=== PATIENT | male | born 1980 | race Caucasian/White ===

== ENCOUNTER → 2016-09-03 | Outpatient (CLI) | payer OTHER ==
[~2016-09-03] MED LIST: ATOR-22 PO; CLX/20 PO; CLX40 PO; CYCL10TA6 PO; GADAVIST IV PRN; HYDR25TA5 PO; LISI-461 PO; LORA-741 PO; LPT/40 PO; METO25TA3 PO; METO50TA7 PO; OMEP40CA PO; OXYC-57 PO; RANI300T2 PO
[2016-09-03 14:58] LABS: BASO % 0.8 %; BASO ABS # 0.06 K/uL (0-0.2); COMPLETE YES; EOS % 4.1 %; HEMATOCRIT 43.4 % (42-52); IG% 0.4 %; LYMPH % 24.7 %; LYMPH ABS # 1.88 K/uL (1.2-3.4); MEAN CELL VOLUME 97.1 fL (80-100); MEAN CORPUSCULAR HEMOGLOBIN 33.1 pg (25-34); MEAN CORPUSCULAR HGB CONC 34.1 g/dl (32-36); MEAN PLATELET VOLUME 10.5 fL (7.4-10.4); MONO % 10.5 %; NEUT % 59.5 %; PLATELET COUNT 281 K/uL (130-400); RED BLOOD COUNT 4.47 M/uL (4.7-6.1); WHITE BLOOD COUNT 7.62 K/uL (4.8-10.8)
[2016-09-03 15:31] LABS: ALT/SGPT 47 U/L (12-78); AST/SGOT 18 U/L (15-37); BLOOD UREA NITROGEN 7 mg/dl (7-18); BUN/CREATININE RATIO 6.1 (10-20); CALCIUM 9.3 mg/dl (8.5-10.1); CARBON DIOXIDE 30 mmol/L (21-32); CHLORIDE 102 mmol/L (98-107); GLUCOSE 95 mg/dl (70-99); POTASSIUM 3.4 mmol/L (3.5-5.1); SODIUM 140 mmol/L (136-145)
[2016-09-03 15:34] LABS: ALB/GLOB RATIO 0.8 (0.9-2); ALKALINE PHOSPHATASE 163 U/L (45-117); C-REACTIVE PROTEIN 1.66 mg/dl (0-0.29)
--- NOTE | 2016-09-03 15:45 | DIAGNOSTIC IMAGING REPORT ---
LUMBAR SPINE MRI HISTORY: Pain. Neuropathy. M62.449 Contracture of muscle of [id number] TECHNIQUE: Multiplanar multisequence MRI of the lumbar spine was performed without the use of contrast. COMPARISON: None. FINDINGS: For the purpose of the report the L5-S1 disc space will be located on axial image 27 of 30. Unremarkable signal characteristics of the vertebral bodies. Mild disc desiccation of the discs. L1-L2: No significant central canal or neural foraminal narrowing. L2-L3: No significant central canal or neural foraminal narrowing. L3-L4: No significant central canal or neural foraminal narrowing. L4-L5: Left lateral bulging disc. Moderate narrowing left neural foramina. L5-S1: Left posterior disc herniation creating focal deformity left anterior aspect thecal sac as well as moderate compromise of left neural foramina. IMPRESSION: 1. Left posterior disc herniation L5-S1 deforming the thecal sac and moderately narrowing left neural foramina. 2. Left lateral bulging disc L4-L5 with moderate narrowing left neural foramina. 3. Otherwise negative study Electronically signed by: Kel Davis M.D. 09/03/2016 3:43 PM Dictated Date/Time: 09/03/2016 3:41 PM
--- NOTE | 2016-09-03 16:46 | DIAGNOSTIC IMAGING REPORT ---
MRI OF THE BRAIN WITHOUT AND WITH IV CONTRAST CLINICAL HISTORY: Bilateral contractures. Rule out central etiology. COMPARISON STUDY: No previous studies for comparison. TECHNIQUE: MRI of the brain was performed from the vertex to the skull base utilizing various T1 and T2 weighted sequences. Following the IV administration of 10.7 mL of Gadavist contrast, additional enhanced images were obtained. FINDINGS: Sagittal T1, axial diffusion, proton density and T2 weighted axial, coronal FLAIR, and pre and post axial T1-weighted images were acquired. These were supplemented with post gadolinium coronal T1 weighted images. No intra or extra-axial mass lesions are visualized. Axial diffusion-weighted images reveal no evidence of acute or subacute infarction. There is no evidence of ventricular dilatation. There are nodular foci at the level the ependymal surfaces of the ventricle, most suggestive heterotopic jimenez matter. Proton density T2-weighted and FLAIR images reveal mild foci of increased FLAIR signal within the left frontal white matter. There are no abnormal flow voids. There is no evidence of pathologic enhancement. IMPRESSION: 1. 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 Mild foci of increased FLAIR signal within the left frontal white matter 3. No evidence of acute or subacute infarction Electronically signed by: Ori Mathur M.D. 09/03/2016 4:44 PM Dictated Date/Time: 09/03/2016 4:37 PM
[2016-09-05 17:30] LABS: IGA SERUM 367 mg/dL (81-463); TIS TRANS IGA 1 U/mL (<4)
== END | disposition home or self-care (01) ==
LOC: C.MRI 14:09
PROVIDERS: ATTEND Psychiatry & Neurology Neurology
DX: M62.449 Contracture of muscle, unspecified hand (principal); R19.4 Change in bowel habit

== ENCOUNTER → 2016-09-24 | Outpatient (CLI) | payer OTHER ==
[~2016-09-24] MED LIST changes: -GADAVIST IV PRN
[2016-09-24 15:02] LABS: ALT/SGPT 37 U/L (12-78); BLOOD UREA NITROGEN 10 mg/dl (7-18); CALCIUM 9.2 mg/dl (8.5-10.1); CARBON DIOXIDE 31 mmol/L (21-32); CHLORIDE 107 mmol/L (98-107); CREATININE 0.94 mg/dl (0.60-1.40); GLUCOSE 98 mg/dl (70-99); POTASSIUM 3.3 mmol/L (3.5-5.1); SODIUM 143 mmol/L (136-145)
[2016-09-24 15:05] LABS: ALB/GLOB RATIO 0.9 (0.9-2); ALKALINE PHOSPHATASE 155 U/L (45-117); AST/SGOT 15 U/L (15-37)
== END | disposition home or self-care (01) ==
LOC: C.LAB 12:42
PROVIDERS: ATTEND Physician Assistant
DX: R74.8 Abnormal levels of other serum enzymes (principal)

== ENCOUNTER → 2016-09-24 | Outpatient (CLI) | payer OTHER ==
--- NOTE | 2016-09-24 13:30 | DIAGNOSTIC IMAGING REPORT ---
THORACIC SPINE 3 VIEWS ROUTINE CLINICAL HISTORY: BACK PAIN COMPARISON STUDY: No previous studies for comparison. FINDINGS: The paraspinal line is not displaced. Minimal irregularity of the T11 and T12 vertebral bodies are likely degenerative. If the patient has persistent pain, additional imaging could be obtained in follow-up. IMPRESSION: No fractures or destructive lesions are visualized on conventional radiographic imaging Electronically signed by: Ori Mathur M.D. 09/24/2016 1:28 PM Dictated Date/Time: 09/24/2016 1:25 PM
[2016-09-24 14:39] LABS: HEMATOCRIT 44.2 % (42-52); MEAN CELL VOLUME 98.4 fL (80-100); MEAN CORPUSCULAR HEMOGLOBIN 33.2 pg (25-34); MEAN CORPUSCULAR HGB CONC 33.7 g/dl (32-36); MEAN PLATELET VOLUME 11.2 fL (7.4-10.4); PLATELET COUNT 367 K/uL (130-400); RED BLOOD COUNT 4.49 M/uL (4.7-6.1); WHITE BLOOD COUNT 8.88 K/uL (4.8-10.8)
[2016-09-24 15:06] LABS: ALT/SGPT 36 U/L (12-78); AST/SGOT 16 U/L (15-37); BLOOD UREA NITROGEN 10 mg/dl (7-18); BUN/CREATININE RATIO 11.4 (10-20); CALCIUM 8.9 mg/dl (8.5-10.1); CARBON DIOXIDE 30 mmol/L (21-32); CHLORIDE 107 mmol/L (98-107); GLUCOSE 97 mg/dl (70-99); POTASSIUM 3.4 mmol/L (3.5-5.1); SODIUM 143 mmol/L (136-145)
[2016-09-24 15:17] LABS: ALB/GLOB RATIO 0.8 (0.9-2); ALKALINE PHOSPHATASE 142 U/L (45-117); CHOLESTEROL 130 mg/dl (0-200); CHOLESTEROL/HDL RATIO 3.5; CKMB/CK RATIO 0.6 (0-3.0); HDL CHOLESTEROL 37 mg/dl; LDL CHOLESTEROL CALCULATED 56 mg/dl; TRIGLYCERIDES 184 mg/dl (0-150); VERY LOW DENSITY LIPOPROT CALC 37 mg/dl
== END | disposition home or self-care (01) ==
LOC: C.RAD 12:38
PROVIDERS: ATTEND Dermatology
DX: E78.5 Hyperlipidemia, unspecified (principal); M25.579 Pain in unspecified ankle and joints of unspecified foot; E66.9 Obesity, unspecified; I10 Essential (primary) hypertension; M54.5 Low back pain; R53.81 Other malaise; R74.8 Abnormal levels of other serum enzymes

== ENCOUNTER → 2016-10-02 | Day surgery (SDC) | payer OTHER ==
[2016-09-25 07:50] VITALS: BMI 32.0
[~2016-10-02] VITALS: Ht 182.9 cm; Wt 106.8 kg
[~2016-10-02] MED LIST changes: -ATOR-22 PO; -CLX/20 PO; -HYDR25TA5 PO; +LIDOCAINE HCL 2% 2 ML VIAL (20MG/ML) ONE; -METO25TA3 PO; +MIDAZOLAM HCL 1 MG/ML 2ML VIAL ONE; +PROPOFOL IV EMULSION 10 MG/ML 20 ML VIAL IV ONE; +SODIUM CHLORIDE 0.9% 500ML 500 ML IV ONE
[2016-10-02 08:31] VITALS: Ht 182.9 cm; Wt 106.8 kg
--- NOTE | 2016-10-02 08:46 | Endo History and Physical ---
History & Physical Date of Service: October 02, 2016. Chief Complaint: change in bowel habits, loose stools Referring Physician: Billie Johnson PA-C History of Present Illness 36 yo CM who presents for colonoscopy secondary to change in bowel habits. Past Medical History Gastrointestinal Disorder, High Cholesterol, Hypertension Past Surgical History Hx Cardiac Surgery: No Hx Internal Defibrillator: No Hx Pacemaker: No Hx Abdominal Surgery: No Hx of Implantable Prosthesis: No Hx Post-Op Nausea and Vomiting: No Hx Cancer Surgery: No Hx Thoracic Surgery: No Hx Orthopedic: Yes (LT ANKLE REPLACEMENT, LT SHOULDER SURGERY, LT KNEE RECON) Hx Urinary Tract Surgery: No Family History None Social History Smoking Status: Never Smoker Hx Substance Use: No Hx Alcohol Use: No Allergies Coded Allergies: No Known Allergies (Unverified , 09/25/16) Current Medications Reported Home Medications Medications Dose Route/Sig Max Daily Dose Days Date Category Ativan (Lorazepam) 0.5 Mg Tab 0.5 Mg PO TID PRN 09/25/16 Reported Zestril (Lisinopril) 10 Mg Tab 10 Mg PO QAM 09/25/16 Reported Citalopram Hydrobromide (Citalopram) 40 Mg Tab 1 Tab PO QAM 09/25/16 Reported Toprol-Xl (Metoprolol Succinate) 50 Mg Tabcr 50 Mg PO QAM 09/25/16 Reported Lipitor (Atorvastatin) 40 Mg Tab 40 Mg PO HS 09/25/16 Reported Zantac (Ranitidine HCl) 300 Mg Tab 300 Mg PO HS 07/26/14 Reported Prilosec (Omeprazole) 40 Mg Capcr 40 Mg PO QAM 04/30/14 Reported Vital Signs Weight (Kilograms): 106.82 Height (Feet): 6 Height (Inches): 0 Date Time Temp Pulse Resp B/P Pulse Ox O2 Delivery O2 Flow Rate FiO2 10/02/16 08:37 36.6 64 24 142/92 94 Room Air Physical Exam General Appearance: WD/WN, no apparent distress Respiratory/Chest: Auscultation: breath sounds normal Cardiovascular: Heart Auscultation: RRR Abdomen: Bowel Sounds: normal Inspection & Palpation: soft, non-distended, no tenderness, guarding & rebound Assessment and Plan Assessment: 36 yo CM who presents for colonoscopy secondary to change in bowel habits. Plan: Proceed with colonoscopy.
--- NOTE | 2016-10-02 09:33 | Discharge Instructions ---
Endoscopy Patient Instructions Date / Procedure(s) Performed October 02, 2016. Colonoscopy Allergy Information Coded Allergies: No Known Allergies (Unverified , 09/25/16) Discharge Date / Findings October 02, 2016. Diverticulosis Internal hemorrhoids Random colon biopsies Medication Instructions OK to resume all medications today as prescribed Reported Home Medications Medications Dose Route/Sig Max Daily Dose Days Date Category Ativan (Lorazepam) 0.5 Mg Tab 0.5 Mg PO TID PRN 09/25/16 Reported Zestril (Lisinopril) 10 Mg Tab 10 Mg PO QAM 09/25/16 Reported Citalopram Hydrobromide (Citalopram) 40 Mg Tab 1 Tab PO QAM 09/25/16 Reported Toprol-Xl (Metoprolol Succinate) 50 Mg Tabcr 50 Mg PO QAM 09/25/16 Reported Lipitor (Atorvastatin) 40 Mg Tab 40 Mg PO HS 09/25/16 Reported Zantac (Ranitidine HCl) 300 Mg Tab 300 Mg PO HS 07/26/14 Reported Prilosec (Omeprazole) 40 Mg Capcr 40 Mg PO QAM 04/30/14 Reported Provider Instructions Activity Restrictions - No exercising or heavy lifting for 24 hours. - Do not drink alcohol the day of the procedure. - Do not drive a car or operate machinery until the day after the procedure. - Do not make any important decisions or sign important papers in 24 hours after the procedure. Following Day: - Return to full activity which may include returning to work/school. Diet Start your diet with liquids and light foods (jello, soup, juice, toast). Then eat your usual diet if not nauseated. Treatment For Common After Affects For mild abdominal pain, bloating, or excessive gas: - Rest - Eat lightly - Lie on right side Follow-Up Information Follow-up with Billie Johnson PA-C as scheduled Anesthesia Information What You Should Know You have had a procedure that required some medicine to reduce anxiety and discomfort. This treatment is called moderate sedation. After receiving the treatment, you may be sleepy, but you will be able to breathe on your own. The effects of the treatment may last for several hours. Follow these instructions along with Activity/Diet recommendations noted above: * Do NOT do anything where dizziness or clumsiness would be dangerous. * Rest quietly at home today, then you can be up and about tomorrow. * Have a responsible person stay with you the rest of today. * You may have had an I.V. today. If so, you may take the dressing off later today. Recommendations Call your doctor if: * Trouble breathing * Continuous vomiting for more than 24 hours * Temperature above 101 degrees * Severe abdominal pain or bloating * Pain not relieved by pain medicine ordered * There is increased drainage or redness from any incision * A large amount of rectal bleeding greater than 2-3 tablespoons. (If you had a polyp/s removed or have hemorrhoids, a small amount of blood - from the rectum is to be expected.) * You have any unanswered questions or concerns. IN THE EVENT OF A SERIOUS EMERGENCY, GO TO THE NEAREST EMERGENCY ROOM Your discharge instructions were prepared by provider Howard Ohara. Patient Instructions Signature Page Leonel Layne Patient (or Guardian) Signature/Date: I have read and understand the instructions given to me by my caregivers. Caregiver/RN/Doctor Signature/Date: The above-named patient and/or guardian has received patient instructions on this date. + Original Patient Signature Page (only) stays with chart. Please make copy for patient.
--- NOTE | 2016-10-02 09:43 | Anesthesiology Progress Note ---
Anesthesia Post Op Note Date & Time October 02, 2016 at 09:43 Vital Signs Pain Intensity: 0 Vital Signs Past 12 Hours Date Time Temp Pulse Resp B/P Pulse Ox O2 Delivery O2 Flow Rate FiO2 10/02/16 09:35 75 16 113/58 94 Room Air 10/02/16 08:37 36.6 64 24 142/92 94 Room Air Notes Mental Status: alert / awake / arousable, participated in evaluation Pt Amnestic to Procedure: Yes Nausea / Vomiting: adequately controlled Pain: adequately controlled Airway Patency, RR, SpO2: stable & adequate BP & HR: stable & adequate Hydration State: stable & adequate Anesthetic Complications: no major complications apparent
--- NOTE | 2016-10-02 09:51 | GI REPORT ---
Procedure Date: 10/02/2016 8:49 AM Procedure: Colonoscopy Indications: Change in bowel habits Medicines: Monitored Anesthesia Care Complications: No immediate complications. Estimated Blood Loss: Estimated blood loss: none. Procedure: Pre-Anesthesia Assessment: - Prior to the procedure, a History and Physical was performed, and patient medications and allergies were reviewed. The patient's tolerance of previous anesthesia was also reviewed. The risks and benefits of the procedure and the sedation options and risks were discussed with the patient. All questions were answered, and informed consent was obtained. Prior Anticoagulants: The patient has taken no previous anticoagulant or antiplatelet agents. ASA Grade Assessment: II - A patient with mild systemic disease. After reviewing the risks and benefits, the patient was deemed in satisfactory condition to undergo the procedure. After I obtained informed consent, the scope was passed under direct vision. Throughout the procedure, the patient's blood pressure, pulse, and oxygen saturations were monitored continuously. The scope was introduced through the anus and advanced to the terminal ileum. The colonoscopy was performed without difficulty. The patient tolerated the procedure well. The quality of the bowel preparation was good. The terminal ileum, ileocecal valve, appendiceal orifice, and rectum were photographed. Findings: Multiple small-mouthed diverticula were found in the sigmoid colon. Non-bleeding internal hemorrhoids were found during retroflexion. The hemorrhoids were small. Several random biopsies were obtained with cold forceps for histology in the entire colon. Impression: - Diverticulosis in the sigmoid colon. - Non-bleeding internal hemorrhoids. - Several random biopsies were obtained in the entire colon. Recommendation: - Resume previous diet. - Continue present medications. - Repeat colonoscopy for surveillance based on pathology results. - Return to primary care physician as previously scheduled. Howard Ohara DO 10/02/2016 9:50:47 AM This report has been signed electronically. Note Initiated On: 10/02/2016 8:49 AM I attest to the content of the Intraoperative Record and orders documented therein, exceptions below
[2016-10-02 09:56] VITALS: BP 115/90; PULSE 64; O2SAT 100
== END | disposition home or self-care (01) ==
LOC: C.GI 08:17
PROVIDERS: ATTEND Internal Medicine
DX: R19.4 Change in bowel habit (principal); K64.8 Other hemorrhoids; K57.30 Diverticulosis of large intestine without perforation or abscess without bleeding; E78.00 Pure hypercholesterolemia, unspecified; I10 Essential (primary) hypertension

== ENCOUNTER → 2016-10-22 | Outpatient (CLI) | payer OTHER ==
[~2016-10-22] MED LIST changes: -LIDOCAINE HCL 2% 2 ML VIAL (20MG/ML) ONE; -MIDAZOLAM HCL 1 MG/ML 2ML VIAL ONE; -PROPOFOL IV EMULSION 10 MG/ML 20 ML VIAL IV ONE; -SODIUM CHLORIDE 0.9% 500ML 500 ML IV ONE
[2016-10-22 13:21] LABS: LYME DISEASE AB IGG NEG (NEG)
[2016-10-22 13:23] LABS: LYME DISEASE AB IGM NEG (NEG)
[2016-10-22 20:46] LABS: RAPID PLASMA REAGIN NONREACTIVE (NONREACT)
== END | disposition home or self-care (01) ==
LOC: C.LAB 11:21
PROVIDERS: ATTEND Psychiatry & Neurology Neurology
DX: G44.009 Cluster headache syndrome, unspecified, not intractable (principal)

== ENCOUNTER → 2016-10-22 | Outpatient (CLI) | payer OTHER ==
[2016-10-22 12:29] LABS: HEMATOCRIT 43.4 % (42-52); MEAN CELL VOLUME 97.7 fL (80-100); MEAN CORPUSCULAR HEMOGLOBIN 33.6 pg (25-34); MEAN CORPUSCULAR HGB CONC 34.3 g/dl (32-36); MEAN PLATELET VOLUME 11.2 fL (7.4-10.4); PLATELET COUNT 394 K/uL (130-400); RED BLOOD COUNT 4.44 M/uL (4.7-6.1); WHITE BLOOD COUNT 17.24 K/uL (4.8-10.8)
[2016-10-22 13:23] LABS: BLOOD UREA NITROGEN 15 mg/dl (7-18); CREATININE 0.95 mg/dl (0.60-1.40); GLUCOSE 90 mg/dl (70-99)
[2016-10-22 13:24] LABS: ALB/GLOB RATIO 0.9 (0.9-2); ALKALINE PHOSPHATASE 142 U/L (45-117); ALT/SGPT 56 U/L (12-78); AST/SGOT 15 U/L (15-37); BUN/CREATININE RATIO 15.8 (10-20); C-REACTIVE PROTEIN < 0.29 mg/dl (0-0.29); CALCIUM 9.5 mg/dl (8.5-10.1); CARBON DIOXIDE 29 mmol/L (21-32); CHLORIDE 109 mmol/L (98-107); SODIUM 145 mmol/L (136-145)
--- NOTE | 2016-10-31 12:04 | CODING QUERY MEDICAL NECESSITY ---
CQSUPPORTING DIAGNOSIS NEEDED A supporting diagnosis is required for the test/procedure performed on this patient in order for us to be reimbursed by the patient's insurance. Please provide a supporting diagnosis for the following test/procedure listed below next to the test name along with your signature. *If there is no additional diagnosis for this patient that would support the following test/procedure please document that below next to the test/procedure. Test(s)/Procedure(s) that require a supporting diagnosis: DOS 10/22/16 VITAMIN B12 SCREENING SEXUALLY TRANSMITTED DISEASE Provider Signature: Date: Thank you Arleth Walker Health Information Management Once completed, please kindly fax back to [phone] For questions please call [phone]
== END | disposition home or self-care (01) ==
LOC: C.LAB 11:17
PROVIDERS: ATTEND Physician Assistant
DX: M25.579 Pain in unspecified ankle and joints of unspecified foot (principal); R19.7 Diarrhea, unspecified; I10 Essential (primary) hypertension; G43.009 Migraine without aura, not intractable, without status migrainosus; R26.9 Unspecified abnormalities of gait and mobility

== ENCOUNTER → 2017-02-14 | Outpatient (CLI) | payer OTHER ==
[~2017-02-14] MED LIST changes: +SINCALIDE INJ 2.1 MCG in SODIUM CHLORIDE 0.9% 100ML 100 ML IV ONE
--- NOTE | 2017-02-14 13:53 | DIAGNOSTIC IMAGING REPORT ---
HEPATOBILIARY EF IMAGING HISTORY: Nausea. Vomiting. R19.7 [id number] COMPARISON: None. TECHNIQUE: Immediately following the intravenous administration of 5.2 mCi Tc-99m Choletec, dynamic anterior abdominal imaging pre/post 2.1 mcg of Kinevac was performed. FINDINGS: Uniform hepatic tracer accumulation is shown. Prompt intrahepatic biliary excretion is seen. The gallbladder, common bile duct, and small bowel are all visualized by 25 minutes. This appearance represents the normal sequence of biliary excretion. The gallbladder ejection fraction following administration of Kinevac was 26 % (normal >35%). IMPRESSION: 1. No evidence for cystic duct obstruction. 2. Gallbladder ejection fraction calculated to be 26 %. This is considered abnormally low The above report was generated using voice recognition software. It may contain grammatical, syntax or spelling errors. Electronically signed by: Kel Davis M.D. 02/14/2017 1:52 PM Dictated Date/Time: 02/14/2017 1:48 PM
[2017-02-14 14:52] LABS: HEMATOCRIT 43.5 % (42-52); MEAN CELL VOLUME 97.3 fL (80-100); MEAN CORPUSCULAR HEMOGLOBIN 33.3 pg (25-34); MEAN CORPUSCULAR HGB CONC 34.3 g/dl (32-36); MEAN PLATELET VOLUME 11.6 fL (7.4-10.4); PLATELET COUNT 256 K/uL (130-400); RED BLOOD COUNT 4.47 M/uL (4.7-6.1); WHITE BLOOD COUNT 9.48 K/uL (4.8-10.8)
[2017-02-14 15:17] LABS: ALT/SGPT 30 U/L (12-78); AST/SGOT 16 U/L (15-37); BLOOD UREA NITROGEN 7 mg/dl (7-18); BUN/CREATININE RATIO 7.3 (10-20); CALCIUM 9.3 mg/dl (8.5-10.1); CARBON DIOXIDE 30 mmol/L (21-32); CHLORIDE 108 mmol/L (98-107); CHOLESTEROL 129 mg/dl (0-200); CREATININE 0.96 mg/dl (0.60-1.40); GLUCOSE 82 mg/dl (70-99); POTASSIUM 3.6 mmol/L (3.5-5.1); SODIUM 142 mmol/L (136-145)
[2017-02-14 15:25] LABS: ALB/GLOB RATIO 0.9 (0.9-2); ALKALINE PHOSPHATASE 137 U/L (45-117); CHOLESTEROL/HDL RATIO 3.9; HDL CHOLESTEROL 33 mg/dl; LDL CHOLESTEROL CALCULATED 54 mg/dl; THYROID STIMULATING HORMONE 0.684 uIu/ml (0.300-4.500); TRIGLYCERIDES 208 mg/dl (0-150); VERY LOW DENSITY LIPOPROT CALC 42 mg/dl
== END | disposition home or self-care (01) ==
LOC: C.NUCL 10:20
PROVIDERS: ATTEND Physician Assistant
DX: R19.7 Diarrhea, unspecified (principal); I10 Essential (primary) hypertension; E78.5 Hyperlipidemia, unspecified; E66.9 Obesity, unspecified

== ENCOUNTER 2017-03-13 08:52 | Day surgery (SDC) | payer OTHER ==
[2017-03-05 08:21] VITALS: Ht 182.9 cm; Wt 106.4 kg
[~2017-03-13] VITALS: Ht 182.9 cm; Wt 106.4 kg
[~2017-03-13 08:52] MED LIST changes: +CEFOXITIN IV 2,000 MG in DEXTROSE 5% 50ML 50 ML IV SCH; +LACTATED RINGER'S 1000ML 1,000 ML IV SCH; -OMEP40CA PO; -OXYC-57 PO; -SINCALIDE INJ 2.1 MCG in SODIUM CHLORIDE 0.9% 100ML 100 ML IV ONE
[2017-03-13 09:13] VITALS: BP 152/91; PULSE 70; TEMP 36.6; O2SAT 94
[2017-03-13] MEDS ORDERED: MIDAZOLAM HCL 1 MG/ML 2ML VIAL ONE (10:21)
[2017-03-13] MEDS ORDERED: PROPOFOL IV EMULSION 10 MG/ML 20 ML VIAL IV ONE (10:21)
[2017-03-13] MEDS ORDERED: FENTANYL CITRATE INJ 50 MCG/1 ML 2 ML VIAL ONE (10:21)
[2017-03-13] MEDS ORDERED: LIDOCAINE HCL 2% 2 ML VIAL (20MG/ML) ONE (10:21)
[2017-03-13] MEDS ORDERED: ONDANSETRON INJ 2 MG/ML 2 ML VIAL ONE ×2 (10:22→12:42)
[2017-03-13] MEDS ORDERED: ROCURONIUM BROMIDE 10 MG/ML 5 ML VIAL IV ONE (10:22)
[2017-03-13] MEDS ORDERED: ATROPINE SULFATE 0.1 MG/ML 5ML SYR IV PRN (10:30)
[2017-03-13] MEDS ORDERED: HYDROmorphone INJ 1 MG/ML SYR IV PRN (10:30)
[2017-03-13] MEDS ORDERED: FENTANYL CITRATE INJ 50 MCG/1 ML 2 ML VIAL IV PRN (10:30)
[2017-03-13] MEDS ORDERED: EpHEDrine SULFATE INJ 50 MG/ML AMP IV PRN (10:30)
[2017-03-13] MEDS ORDERED: LABETALOL HCL IV 5 MG/ML 20ML IV PRN (10:30)
[2017-03-13] MEDS ORDERED: MEPERIDINE HCL 25 MG/ML CARP IV PRN (10:30)
[2017-03-13] MEDS ORDERED: ONDANSETRON INJ 2 MG/ML 2 ML VIAL IV PRN ×2 (10:30→13:30)
--- NOTE | 2017-03-13 11:56 | History & Physical Bridge Note ---
H&P Re-Evaluation Bridge Note: I have examined the patient, reviewed the History & Physical and in the interval since the performance of the History & Physical I have noted the following changes of clinical significance: No changes noted
[2017-03-13] MEDS ORDERED: SODIUM CHLORIDE 0.9% PF 50 ML VIAL ONE (12:12)
[2017-03-13] MEDS ORDERED: BUPIVACAINE 0.5 % 5 MG/1 ML MPF 30ML VIAL ONE (12:13)
[2017-03-13] MEDS ORDERED: DEXAMETHASONE SOD INJ 4 MG/ML VIAL ONE (12:42)
[2017-03-13] MEDS ORDERED: EpHEDrine SULFATE INJ 50 MG/ML AMP ONE (12:42)
[2017-03-13] MEDS ORDERED: WATER, STERILE FOR INJ 10 ML VIAL ONE (12:42)
[2017-03-13] MEDS ORDERED: GLYCOPYRROLATE INJ 0.2 MG/ML VIAL ONE (13:14)
[2017-03-13] MEDS ORDERED: NEOSTIGMINE METHYLSULFATE 5 MG/5 ML SYR ONE (13:15)
[2017-03-13] MEDS ORDERED: OXYC-57 PO (13:21)
[2017-03-13] MEDS ORDERED: LACTATED RINGER'S 1000ML 1,000 ML IV SCH (13:23)
--- NOTE | 2017-03-13 13:23 | Discharge Instructions ---
Discharge Instructions Date of Service Mar 13, 2017. Visit Reason for Visit: Biliary Dyskinesia Discharge Discharge Diagnosis / Problem: laparoscopic cholecystectomy Discharge Goals Goal(s): Decrease discomfort Activity Recommendations Activity Limitations: as noted below Lifting Limitations: no more than 10 pounds Shower/Bathe: no limitations (ok to shower) Driving or Machine Use: resume 3 days after discharge (if not taking Percocet) Anesthesia . Post Anesthesia Instructions: If you have had General Anesthesia or IV Sedation: * Do not drive today. * Resume driving when surgeon permits. * Do not make important decisions or sign legal documents today. * Call surgeon for: 1. Temperature elevations greater than 101 degrees F. 2. Uncontrollable pain. 3. Excessive bleeding. 4. Persistent nausea and vomiting. 5. Medication intolerance (nausea, vomiting or rash). * For nausea and vomiting use only clear liquids such as: tea, soda, bouillon until nausea subsides, then gradually increase diet as tolerated. * If you have any concerns or questions, call your surgeon's office. If physician is unavailable and it is an emergency, call 911 or go to the nearest emergency room. . Instructions / Follow-Up Instructions / Follow-Up Dr. Chavez in 2 weeks as planned, call [phone] for any questions Diet Recommendations Recommended Home Diet: no limitations Procedures Procedures Performed: Laparoscopic Cholecystectomy Pending Studies Studies pending at discharge: no Medical Emergencies . Who to Call and When: Medical Emergencies: If at any time you feel your situation is an emergency, please call 911 immediately. . Non-Emergent Contact Non-Emergency issues call your: Surgeon Call Non-Emergent contact if: you have a fever, temperature is above 101.5, your pain is not controlled, wound has increased pain, you have any medication questions . . "Provider Documentation" section prepared by Vivek Harrell. .
[2017-03-13] MEDS ORDERED: OXYCODONE/ACETAMINOPHEN 5-325 TAB PO PRN (13:30)
[2017-03-13] MEDS ORDERED: MoRPHine SULFATE 4 MG/ML 1 ML CARP\\VIAL IV PRN (13:30)
--- NOTE | 2017-03-13 13:30 | [facility] Post Operative Brief Note ---
Immediate Operative Summary Operative Date Mar 13, 2017. Pre-Operative Diagnosis Biliary dyskinesia and diarrhea Post-Operative Diagnosis Biliary dyskinesia and diarrhea Procedure(s) Performed Laparoscopic Cholecystectomy Surgeon Dr. Davis Chavez Soda Room Operator Surgeon(s) Vivek Harrell PA-C Estimated Blood Loss 3 mL Findings Window of safety obtained, cystic duct and artery double clipped and divided. Good hemostasis. Specimens Permanent specimens A: Gallbladder and contents Drains None Anesthesia GETA Complication(s) None Disposition Recovery Room / PACU
--- NOTE | 2017-03-13 13:40 | [facility] Operative Report ---
Operative Report Operative Date Mar 13, 2017. Pre-Operative Diagnosis Biliary dyskinesia and diarrhea Post-Operative Diagnosis biliary dyskinesia and diarrhea Procedure(s) Performed laparoscopic cholecystectomy Surgeon Dr. Davis Chavez Director Informatics Surgeon(s) Vivek Harrell PA-C Estimated Blood Loss 3 mL Findings Window of safety obtained, cystic duct and artery double clipped and divided. Good hemostasis. Specimens Permanent specimens A: Gallbladder and contents Drains None Anesthesia GETA Complication(s) None Disposition Recovery Room / PACU Indications 37 year old male with diarrhea and bloating, HIDA revealed biliary dyskinesia. Plan for laparoscopic cholecystectomy with possible intraoperative cholangiogram. The risks of the procedure were discussed, all questions were answered, and the patient agreed to proceed with surgery as planned. Description of Procedure The patient was properly identified, consented, and taken to the operating room where he was placed in the supine position. General endotracheal anesthesia was induced. SCDs and a safety belt were placed. Preoperative antibiotics were administered. The patient's abdomen was prepped and draped in the standard sterile fashion. A surgical timeout was performed and all parties were in agreement that this was the correct patient and procedure to be performed and we continued as planned. A stab incision was made in the left upper quadrant and a veress needle was inserted. Saline drop test confirmed entry into the peritoneum, and the abdomen was insufflated with carbon dioxide which the patient tolerated without incident. An incision was made superior and to the left of midline, avoiding previously placed mesh. The laparoscope was inserted using the optiview technique and a 5mm port. The abdomen was inspected, and no damage from initial trocar placement or veress needle was noted, no gross abnormalities were noted within the 4 quadrants of the abdomen. An 11 mm port was placed in the subxiphoid position in the midline and two 5 mm ports were then placed in the right subcostal position. The patient was placed in reverse Trendelenburg position and rotated towards the left. The dome of the gallbladder was retracted towards the left upper quadrant and the infundibulum was retracted toward the right lower quadrant revealing Calot' s triangle. Peritoneal attachments were taken down with electrocautery and blunt dissection. The cystic duct and artery were circumferentially dissected. A window of safety was obtained showing the cystic duct entering the gallbladder with no aberrant structures noted. The cystic duct and artery were doubly clipped and divided. The gallbladder was then lifted off the gallbladder fossa with electrocautery. The gallbladder was placed in an Endo Catch bag and removed through the subxyphoid port site. The right upper quadrant was irrigated and hemostasis was found to be good. The fascia of the subxyphoid port site was closed with 0 vicryl on a suture passer. 5 mm trochars were removed under direct visualization and the abdomen was allowed to collapse. The wound was irrigated, and the skin of all ports was closed with 4- 0 Monocryl subcuticular sutures. Dermabond was placed over the wounds. The patient was extubated in the operating room and taken to the PACU where he recovered without apparent incident. All sponge, instrument and needle counts were correct at the conclusion of the procedure. The patient tolerated the procedure well. I attest to the content of the Intraoperative Record and any orders documented therein. Any exceptions are noted below.
--- NOTE | 2017-03-13 14:31 | Anesthesiology Progress Note ---
Anesthesia Post Op Note Date & Time Mar 13, 2017 at 14:31 Vital Signs Pain Intensity: 0 Vital Signs Past 12 Hours Date Time Temp Pulse Resp B/P (MAP) Pulse Ox O2 Delivery O2 Flow Rate FiO2 03/13/17 14:18 151/78 03/13/17 14:17 86 22 92 03/13/17 14:17 87 22 03/13/17 14:12 75 19 03/13/17 14:12 75 19 92 03/13/17 14:10 143/90 03/13/17 14:07 80 14 93 03/13/17 14:07 81 14 03/13/17 14:06 63 19 92 03/13/17 14:06 63 19 03/13/17 14:05 160/89 03/13/17 14:01 92 14 03/13/17 14:01 74 14 144/74 100 03/13/17 13:56 69 15 03/13/17 13:56 71 15 100 03/13/17 13:55 159/84 03/13/17 13:51 84 21 100 03/13/17 13:51 83 21 03/13/17 13:50 153/84 03/13/17 13:46 83 14 100 03/13/17 13:46 82 14 03/13/17 13:45 136/96 03/13/17 13:41 36.2 81 16 148/87 100 Oxymask 03/13/17 13:41 81 03/13/17 13:41 81 148/87 98 03/13/17 09:13 36.6 70 18 152/91 (111) 94 Room Air Notes Mental Status: alert / awake / arousable, participated in evaluation Pt Amnestic to Procedure: Yes Nausea / Vomiting: adequately controlled Pain: adequately controlled Airway Patency, RR, SpO2: stable & adequate BP & HR: stable & adequate Hydration State: stable & adequate Anesthetic Complications: no major complications apparent
[2017-03-13 14:45] VITALS: BP 143/87; PULSE 74; TEMP 36.9; O2SAT 94
[2017-03-13 15:15] VITALS: BP 137/77; PULSE 77; O2SAT 94
[2017-03-13 15:45] VITALS: BP 144/79; PULSE 76; TEMP 36.9; O2SAT 96
== END 2017-03-13 16:17 | disposition home or self-care (01) ==
LOC: C.ACU 08:52
PROVIDERS: ATTEND Surgery
DX: K82.8 Other specified diseases of gallbladder (principal); K81.1 Chronic cholecystitis; R19.7 Diarrhea, unspecified; M19.90 Unspecified osteoarthritis, unspecified site; K25.9 Gastric ulcer, unspecified as acute or chronic, without hemorrhage or perforation; E78.00 Pure hypercholesterolemia, unspecified; I10 Essential (primary) hypertension; F41.9 Anxiety disorder, unspecified; F32.9 Major depressive disorder, single episode, unspecified; Z79.899 Other long term (current) drug therapy; Z96.698 Presence of other orthopedic joint implants; Z98.890 Other specified postprocedural states; Z68.32 Body mass index [BMI] 32.0-32.9, adult

== ENCOUNTER 2020-02-25 12:40 | Inpatient (IN) ==
[2020-02-25 13:19] LABS: Appearance Urine Clear (Clear); Bacteria Urine Automated Negative (Negative); Bilirubin Urine Negative (Negative); Blood Urine Negative (Negative); Color Urine Yellow; Glucose Urine UA Negative (Negative); Ketones Urine Negative (Negative); Leukocyte Esterase Urine Negative (Negative); Nitrite Urine Negative (Negative); Protein Urine Trace (Negative); RBC Urine Automated 0-4 /hpf (0-4); Specific Gravity Urine 1.026 (1.000-1.030); Urobilinogen Urine Negative (Negative)
[2020-02-25 13:48] LABS: Basophils # (auto) 0.03 K/uL (0-0.2); Basophils % (auto) 0.4 %; Eosinophils # (auto) 0.09 K/uL (0-0.5); Eosinophils % (auto) 1.1 %; Hemoglobin 16.3 g/dL (14.0-18.0); Immature Granulocytes # (auto) 0.02 K/uL (0.00-0.02); Immature Granulocytes % (auto) 0.2 %; Lymphocytes # (auto) 2.27 K/uL (1.2-3.4); Lymphocytes % (auto) 28.1 %; Mean Corpuscular Hgb Conc 32.6 g/dL (32-36); Mean Corpuscular Volume 98.2 fL (80-100); Mean Platelet Volume 10.9 fL (7.4-10.4); Monocytes # (auto) 0.46 K/uL (0.11-0.59); Monocytes % (auto) 5.7 %; Neutrophils # (auto) 5.21 K/uL (1.4-6.5); Neutrophils % (auto) 64.5 %; Platelet Count 337 K/uL (130-400); RDW Coefficient of Variation 12.7 % (11.5-14.5); RDW Standard Deviation 45.7 fL (36.4-46.3); Red Blood Count 5.09 M/uL (4.7-6.1); White Blood Count 8.08 K/uL (4.8-10.8)
[2020-02-25 13:50] LABS: Amphetamines+Metham, Urine Neg (Neg); Barbiturates, Urine Neg (Neg); Benzodiazepine, Urine Neg (Neg); Cocaine, Urine Neg (Neg); MDMA (Ecstacy), Urine Neg (Neg); Methadone, Urine Neg (Neg); Opiate, Urine Neg (Neg); Phencyclidine, Urine Neg (Neg)
[2020-02-25 14:08] LABS: Albumin Level 3.4 gm/dl (3.4-5.0); BUN Creatinine Ratio 12.6 (10-20); Calcium 9.4 mg/dl (8.5-10.1); Est GFR (African American) 95.4; Est GFR (Non-African American) 82.3; Potassium 3.7 mmol/L (3.5-5.1)
[2020-02-25 14:12] LABS: Acetaminophen < 2 ug/ml (10-30); Salicylate < 1.7 mg/dl (2.8-20)
[2020-02-25 14:18] LABS: Albumin Globulin Ratio 0.7 (0.9-2); Bilirubin,Total 0.3 mg/dl (0.2-1); Globulin 4.8 gm/dl (2.5-4.0); Thyroid Stimulating Hormone 1.04 uIu/ml (0.300-4.500); Total Protein 8.2 gm/dl (6.4-8.2)
--- NOTE | 2020-02-25 14:33 | Emergency Department Note ---
History of Present Illness General Chief Complaint: Mental Health Evaluation Time Seen by Provider: 02/25/20 13:26 Source: patient Mode of arrival: ambulatory Limitations: no limitations History of Present Illness Provider complaint: suicidal ideation and feels depressed This is a 39-year-old male who presents to the ED with a chief complaint of feeling depressed. He states that he feels like he would be better off for the past week and a half. He is thinking about overdosing on pills or buying a shotgun or possibly running into traffic. The patient states that he is living with his aunt. She tells him that he has to stop living in the past and take a breath of reality. The patient has no other complaints at this time. Denies any fevers or recent illness. No chest pains or shortness of breath. He denies doing anything to harm himself at this time. He initially went to his PCPs office and then was referred here. He is voluntary and would like to stay in the hospital to get help. Home Medications Home Medications Medication Instructions Recorded Confirmed Type aripiprazole 5 mg PO QAM 02/25/20 02/25/20 History cimetidine 400 mg PO HS 02/25/20 02/25/20 History escitalopram oxalate 5 mg PO QAM 02/25/20 02/25/20 History gabapentin 100 mg PO TID 02/25/20 02/25/20 History lisinopril 10 mg PO QAM 02/25/20 02/25/20 History metoprolol succinate 25 mg PO QAM 02/25/20 02/25/20 History pantoprazole 40 mg PO QAM 02/25/20 02/25/20 History prazosin 1 mg PO 02/25/20 02/25/20 History rosuvastatin 2 mg PO 02/25/20 02/25/20 History Allergies Allergy/AdvReac Type Severity Reaction Status Date / Time simvastatin Allergy Unknown UNKNOWN Verified 03/13/17 09:04 Past Med/Surg History Social History Smoking Status: Never smoker Feels Safe at Home: Yes Review of Systems A total of 10 systems reviewed and were otherwise negative Physical Exam Vital Signs Vital Signs - 24 hr 02/25/20 12:52 Temperature 36.7 C Temperature Source Oral Pulse Rate 81 Respiratory Rate 20 Respiratory Effort / Characteristics Non-Labored Respiratory Depth Normal Blood Pressure 144/102 H Blood Pressure Mean 116 Blood Pressure Position Sitting Pulse Oximetry 98 Oxygen Delivery Method Room Air Sepsis Recent Fever Within 48 Hours No Sepsis New/Unexplained Change in Mental Status No Sepsis Action Taken by Nursing No Action Required CONSTITUTIONAL/VITAL SIGNS: Reviewed / noted above. GENERAL: Non-toxic in appearance. INTEGUMENTARY: Warm, dry, and [place]. HEAD: Normocephalic. EYES: without scleral icterus or trauma. ENT/OROPHARYNX: clear and moist. LYMPHADENOPATHY/NECK: Is supple without lymphadenopathy or meningismus. RESPIRATORY: Lungs clear and equal. CARDIOVASCULAR: Regular rate and rhythm. GI/ABDOMEN: Soft and nontender. No organomegaly or pulsatile mass. No rebound or guarding. Normal bowel sounds. EXTREMITIES: Warm and well perfused. BACK: No CVA tenderness. NEUROLOGICAL: Intact without focal deficits. PSYCHIATRIC: normal affect. MUSCULOSKELETAL: Normally developed with good muscle tone. TRIAGE NURSING DOCUMENTATION REVIEWED. Medical Decision Making Differential Diagnosis Differential includes toxic ingestions, self-mutilation, suicidal ideation, suicide attempt, depression. Medical Records Attestation: I reviewed the patient's medical records. Home Medications Current Medication List: was personally reviewed by me Laboratory Data Attestation: I reviewed the patient's lab results. Result diagrams: 02/25/20 13:29 02/25/20 13:29 Lab Results 02/25/20 02/25/20 02/25/20 Range/Units 12:55 12:55 13:29 WBC 8.08 (4.8-10.8) K/uL RBC 5.09 (4.7-6.1) M/uL Hgb 16.3 (14.0-18.0) g/dL Hct 50.0 (42-52) % MCV 98.2 (80-100) fL MCH 32.0 (25-34) pg MCHC 32.6 (32-36) g/dL RDW Std Deviation 45.7 (36.4-46.3) fL RDW Coeff of Alejandra 12.7 (11.5-14.5) % Plt Count 337 (130-400) K/uL MPV 10.9 H (7.4-10.4) fL Immature Gran % (Auto) 0.2 % Neut % (Auto) 64.5 % Lymph % (Auto) 28.1 % [place] % (Auto) 5.7 % Eos % (Auto) 1.1 % Baso % (Auto) 0.4 % Neut # (Auto) 5.21 (1.4-6.5) K/uL Lymph # (Auto) 2.27 (1.2-3.4) K/uL [place] # (Auto) 0.46 (0.11-0.59) K/uL Eos # (Auto) 0.09 (0-0.5) K/uL Baso # (Auto) 0.03 (0-0.2) K/uL Immature Gran # (Auto) 0.02 (0.00-0.02) K/uL Sodium (136-145) mmol/L Potassium (3.5-5.1) mmol/L Chloride (98-107) mmol/L Carbon Dioxide (21-32) mmol/L Anion Gap (3-11) BUN (7-18) mg/dl Creatinine (0.6-1.4) mg/dl Est Cr Clr Drug Dosing ml/min Est GFR ( Amer) Est GFR (Non-Af Amer) BUN/Creatinine Ratio (10-20) Glucose (70-99) mg/dl Calcium (8.5-10.1) mg/dl Total Bilirubin (0.2-1) mg/dl AST (15-37) U/L ALT (12-78) U/L Alkaline Phosphatase (45-117) U/L Total Protein (6.4-8.2) gm/dl Albumin (3.4-5.0) gm/dl Globulin (2.5-4.0) gm/dl Albumin/Globulin Ratio (0.9-2) TSH (0.300-4.500) uIu/ml Urine Color Yellow Urine Appearance Clear (Clear) Urine pH 7.0 (4.5-7.5) Ur Specific [place] 1.026 (1.000-1.030) Urine Protein Trace H (Negative) Urine Glucose (UA) Negative (Negative) Urine Ketones Negative (Negative) Urine Blood Negative (Negative) Urine Nitrite Negative (Negative) Urine Bilirubin Negative (Negative) Urine Urobilinogen Negative (Negative) Ur Leukocyte Esterase Negative (Negative) Urine WBC (Auto) 1-5 (0-5) /hpf Urine RBC (Auto) 0-4 (0-4) /hpf U Hyaline Cast (Auto) 1-5 (0-5) /lpf U Epithel Cells (Auto) 5-10 H (0-5) /lpf Urine Bacteria (Auto) Negative (Negative) Salicylates (2.8-20) mg/dl Urine Opiates Screen Neg (Neg) Ur Methadone, Qual Neg (Neg) Acetaminophen (10-30) ug/ml Urine Barbiturates Neg (Neg) Ur Phencyclidine (PCP) Neg (Neg) U Amphetamin/Meth Scrn Neg (Neg) MDMA (Ecstasy) Screen Neg (Neg) U Benzodiazepines Scrn Neg (Neg) Ur Cocaine Metabolite Neg (Neg) U Marijuana (THC) Screen Neg (Neg) Ethyl Alcohol mg/dL (0-3) mg/dl 02/25/20 02/25/20 02/25/20 Range/Units 13:29 13:29 13:29 WBC (4.8-10.8) K/uL RBC (4.7-6.1) M/uL Hgb (14.0-18.0) g/dL Hct (42-52) % MCV (80-100) fL MCH (25-34) pg MCHC (32-36) g/dL RDW Std Deviation (36.4-46.3) fL RDW Coeff of Alejandra (11.5-14.5) % Plt Count (130-400) K/uL MPV (7.4-10.4) fL Immature Gran % (Auto) % Neut % (Auto) % Lymph % (Auto) % [place] % (Auto) % Eos % (Auto) % Baso % (Auto) % Neut # (Auto) (1.4-6.5) K/uL Lymph # (Auto) (1.2-3.4) K/uL [place] # (Auto) (0.11-0.59) K/uL Eos # (Auto) (0-0.5) K/uL Baso # (Auto) (0-0.2) K/uL Immature Gran # (Auto) (0.00-0.02) K/uL Sodium 139 (136-145) mmol/L Potassium 3.7 (3.5-5.1) mmol/L Chloride 105 (98-107) mmol/L Carbon Dioxide 26 (21-32) mmol/L Anion Gap 8.0 (3-11) BUN 14 (7-18) mg/dl Creatinine 1.12 (0.6-1.4) mg/dl Est Cr Clr Drug Dosing 105.0 ml/min Est GFR ( Amer) 95.4 Est GFR (Non-Af Amer) 82.3 BUN/Creatinine Ratio 12.6 (10-20) Glucose 139 H (70-99) mg/dl Calcium 9.4 (8.5-10.1) mg/dl Total Bilirubin 0.3 (0.2-1) mg/dl AST 23 (15-37) U/L ALT 38 (12-78) U/L Alkaline Phosphatase 166 H (45-117) U/L Total Protein 8.2 (6.4-8.2) gm/dl Albumin 3.4 (3.4-5.0) gm/dl Globulin 4.8 H (2.5-4.0) gm/dl Albumin/Globulin Ratio 0.7 L (0.9-2) TSH 1.040 (0.300-4.500) uIu/ml Urine Color Urine Appearance (Clear) Urine pH (4.5-7.5) Ur Specific [place] (1.000-1.030) Urine Protein (Negative) Urine Glucose (UA) (Negative) Urine Ketones (Negative) Urine Blood (Negative) Urine Nitrite (Negative) Urine Bilirubin (Negative) Urine Urobilinogen (Negative) Ur Leukocyte Esterase (Negative) Urine WBC (Auto) (0-5) /hpf Urine RBC (Auto) (0-4) /hpf U Hyaline Cast (Auto) (0-5) /lpf U Epithel Cells (Auto) (0-5) /lpf Urine Bacteria (Auto) (Negative) Salicylates < 1.7 L (2.8-20) mg/dl Urine Opiates Screen (Neg) Ur Methadone, Qual (Neg) Acetaminophen < 2 L (10-30) ug/ml Urine Barbiturates (Neg) Ur Phencyclidine (PCP) (Neg) U Amphetamin/Meth Scrn (Neg) MDMA (Ecstasy) Screen (Neg) U Benzodiazepines Scrn (Neg) Ur Cocaine Metabolite (Neg) U Marijuana (THC) Screen (Neg) Ethyl Alcohol mg/dL < 3.0 (0-3) mg/dl MDM Narrative Patient presents with suicidal thoughts with a plan. His work-up while here was unremarkable. He is voluntary. He is looking for help. The patient has been evaluated by mental health casework manager. Bed placement underway. Signed out to Dr. Hewitt at shift change. Impression & Plan Suicidal ideation Discharge Plan Visit Data Chief Complaint: Mental Health Evaluation ED Provider: Iron Zepeda Discharge Problem: Suicidal ideation Forms Stand Alone Forms: [facility], Suicide Prevention Resources, Virtual Emergency Department, Important Visit Information Prescriptions Prescriptions: No Action pantoprazole 40 mg Tablet,Delayed Release (Dr/Ec) 40 mg PO QAM RF: 0 aripiprazole 5 mg Tablet 5 mg PO QAM RF: 0 lisinopril 10 mg Tablet 10 mg PO QAM RF: 0 metoprolol succinate 25 mg Tablet Extended Release 24 Hr 25 mg PO QAM RF: 0 gabapentin 100 mg Capsule 100 mg PO TID RF: 0 escitalopram oxalate 5 mg Tablet 5 mg PO QAM RF: 0 prazosin 1 mg Capsule 1 mg PO HS RF: 0 rosuvastatin 5 mg Tablet 2 mg PO HS RF: 0 cimetidine 400 mg Tablet 400 mg PO HS RF: 0 Referrals Referrals: Lesley Pimentel CRNP [Primary Care Provider] -
--- NOTE | 2020-02-25 16:04 | Emergency Department Note ---
General (ED) Blank Date of Service February 25, 2020 This patient was signed out to me at shift change by Dr. Zepeda. The patient has been medically cleared and was voluntary and awaiting placement. 3 S. came and evaluated the patient and will be admitting him voluntarily for further inpatient treatment and evaluation
[2020-02-25] MEDS ORDERED: GABAPENTIN 100 MG CAP PO STA (16:06)
[2020-02-25] MEDS ORDERED: BISMUTH SUBSALICYLATE LIQD 236 ML PO PRN (18:17)
[2020-02-25] MEDS ORDERED: SODIUM CHLORIDE 0.65% NA SOLN 45 ML (OCEAN) PRN (18:17)
[2020-02-25] MEDS ORDERED: MAGNESIUM HYDROXIDE SUSP 30 ML UDC PO PRN (18:17)
[2020-02-25] MEDS ORDERED: ALUMINUM/MAGNESIUM SUSP 30 ML UDC PO PRN (18:17)
[2020-02-25] MEDS ORDERED: ACETAMINOPHEN 325 MG TAB PO PRN (18:17)
[2020-02-25] MEDS ORDERED: hydrOXYzine HCl 25 MG TAB PO PRN ×2 (18:17)
[2020-02-25] MEDS: ROSUVASTATIN CALCIUM 20 MG TAB PO SCH (20:37)
[2020-02-25] MEDS: GABAPENTIN 100 MG CAP PO SCH (20:37)
[2020-02-25] MEDS: PRAZOSIN HCL 1 MG CAP PO SCH (20:37)
[2020-02-25] MEDS ORDERED: GABAPENTIN 100 MG CAP PO SCH (21:00)
[2020-02-26] MEDS: GABAPENTIN 100 MG CAP PO SCH ×3 (08:13→21:15)
[2020-02-26] MEDS: METOPROLOL SUCC 25MG EXT REL TAB PO SCH (08:13)
[2020-02-26] MEDS: ARIPiprazole 5 MG TAB PO SCH (08:13)
[2020-02-26] MEDS: lisinopril 10 MG TAB PO SCH (08:13)
[2020-02-26] MEDS: PANTOprazole 40 MG TAB PO SCH (08:13)
[2020-02-26] MEDS ORDERED: ESCITALOPRAM OXALATE 10 MG TAB PO SCH (09:00)
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
[2020-02-26] MEDS: PRAZOSIN HCL 1 MG CAP PO SCH (21:15)
[2020-02-26] MEDS: ROSUVASTATIN CALCIUM 20 MG TAB PO SCH (21:15)
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
[2020-02-27] MEDS: ARIPiprazole 5 MG TAB PO SCH (08:18)
[2020-02-27] MEDS: FAMOTIDINE 20 MG TAB PO SCH (08:19)
[2020-02-27] MEDS: PANTOprazole 40 MG TAB PO SCH (08:19)
[2020-02-27] MEDS: GABAPENTIN 100 MG CAP PO SCH ×3 (08:19→20:36)
[2020-02-27] MEDS: ESCITALOPRAM OXALATE 10 MG TAB PO SCH (08:19)
[2020-02-27] MEDS: METOPROLOL SUCC 25MG EXT REL TAB PO SCH (08:19)
[2020-02-27] MEDS: lisinopril 10 MG TAB PO SCH (08:19)
[2020-02-27] MEDS: ROSUVASTATIN CALCIUM 20 MG TAB PO SCH (20:36)
[2020-02-27] MEDS: PRAZOSIN HCL 1 MG CAP PO SCH (20:37)
[2020-02-28] MEDS: METOPROLOL SUCC 25MG EXT REL TAB PO SCH (08:12)
[2020-02-28] MEDS: GABAPENTIN 100 MG CAP PO SCH ×3 (08:12→20:57)
[2020-02-28] MEDS: ESCITALOPRAM OXALATE 10 MG TAB PO SCH (08:12)
[2020-02-28] MEDS: FAMOTIDINE 20 MG TAB PO SCH (08:12)
[2020-02-28] MEDS: PANTOprazole 40 MG TAB PO SCH (08:12)
[2020-02-28] MEDS: ARIPiprazole 5 MG TAB PO SCH (08:12)
[2020-02-28] MEDS: lisinopril 10 MG TAB PO SCH (08:12)
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
[2020-02-28] MEDS: ROSUVASTATIN CALCIUM 20 MG TAB PO SCH (20:57)
[2020-02-28] MEDS: PRAZOSIN HCL 1 MG CAP PO SCH (20:57)
[2020-02-29] MEDS: ESCITALOPRAM OXALATE 10 MG TAB PO SCH (07:50)
[2020-02-29] MEDS: GABAPENTIN 100 MG CAP PO SCH (07:50)
[2020-02-29] MEDS: ARIPiprazole 5 MG TAB PO SCH (07:50)
[2020-02-29] MEDS: PANTOprazole 40 MG TAB PO SCH (07:51)
[2020-02-29] MEDS: lisinopril 10 MG TAB PO SCH (07:51)
[2020-02-29] MEDS: METOPROLOL SUCC 25MG EXT REL TAB PO SCH (07:51)
[2020-02-29] MEDS: FAMOTIDINE 20 MG TAB PO SCH (07:51)
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
== END 2020-02-29 12:55 | disposition home or self-care (01) | DRG 885 ==
LOC: ED 12:40 → SUATTDRO 16:55 → 3S 16:55